=== PATIENT | female | born 1955 | race Caucasian/White ===

== ENCOUNTER 2016-12-07 05:32 | Day surgery (SDC) | payer OTHER ==
[~2016-12-07] VITALS: Ht 170.2 cm; Wt 58.1 kg
[~2016-12-07 05:32] MED LIST: CALTRATE 600 +1 EAC1 PO; COLLAGEN PLUS1 EACH PO; OMEGA 3 500 SO1 EACH PO; OMEGA-3 FLAXS1000 MG PO; OMEPRAZOLE20 MG PO; SUPER B-50 COM1 EACH PO; TUMERIC PO; VITAMIN D5000 UNI1 PO; VITAMIN E400 UNIT PO
[2016-12-07 06:48] VITALS: BP 118/74
[2016-12-07 08:45] VITALS: BP 136/81
== END 2016-12-07 09:20 | disposition home or self-care (01) ==
LOC: SDC 05:32
DX: H43.392 Other vitreous opacities, left eye (principal); K21.9 Gastro-esophageal reflux disease without esophagitis; E78.5 Hyperlipidemia, unspecified; Z82.49 Family history of ischemic heart disease and other diseases of the circulatory system; Z80.3 Family history of malignant neoplasm of breast
CPT/HCPCS: J0690; J0713; J3300